=== PATIENT | male | born 1960 | race Caucasian/White ===

== ENCOUNTER 2017-04-17 07:09 | Day surgery (SDC) | payer BC, OTHER ==
[~2017-04-17] VITALS: Ht 185.4 cm; Wt 99.3 kg
[~2017-04-17 07:09] MED LIST: CURC500C PO; DOXY100C37; FLEXERIL OR; FLUO20CA19; LEXAPRO OR; MSM/CAP PO; MULTIVIT OR; SAW80CAP PO; SM I100T OR; TRAM50TA2 OR; VIT D 2000 OR; VITAMIN E OR; [UNRECOGNIZED DRUG - CODE] PO; [UNRECOGNIZED DRUG - OTHER] PB
[2017-04-17] MEDS ORDERED: NS 1,000 ML IV ONE (07:30)
[2017-04-17] MEDS ORDERED: LIDOCAINE 2% INJ 100 MG/5 ML SDV (FOR ANES.) As Ordered ONE (07:37)
[2017-04-17] MEDS ORDERED: PROPOFOL 500 MG/50 ML VIAL As Ordered ONE (07:37)
--- NOTE | 2017-04-17 07:51 | ROOR ---
Patient Name: José Medellin Procedure Date: 04/17/2017 7:34 AM Date of : 1960 Age: 56 Room: [facility] Gender: Male Note Status: Finalized Procedure: Total Colonoscopy to Cecum Indications: High risk colon cancer surveillance: Personal history of colonic polyps, Last colonoscopy: 2013 Providers: Bal Arredondo MD Referring MD: ROB ROSADO JR, MD Requesting Provider: Medicines: Monitored Anesthesia Care Complications: No immediate complications. Procedure: Pre-Anesthesia Assessment: - The heart rate, respiratory rate, oxygen saturations, blood pressure, adequacy of pulmonary ventilation, and response to care were monitored throughout the procedure. The Colonoscope was introduced through the anus and advanced to the cecum, identified by appendiceal orifice and ileocecal valve. The colonoscopy was performed without difficulty. The patient tolerated the procedure well. The quality of the bowel preparation was excellent. Findings: The perianal and digital rectal examinations were normal. Non-bleeding internal hemorrhoids were found during retroflexion. The hemorrhoids were small and Grade I (internal hemorrhoids that do not prolapse). No other significant abnormalities were identified in a careful examination of the remainder of the colon. The exam was otherwise without abnormality on direct and retroflexion views. Impression: - Non-bleeding internal hemorrhoids. - The examination was otherwise normal on direct and retroflexion views. - No specimens collected. - The exam was otherwise normal to the cecum. Recommendation: - Patient has a contact number available for emergencies. The signs and symptoms of potential delayed complications were discussed with the patient. Return to normal activities tomorrow. Written discharge instructions were provided to the patient. - High fiber diet. - Discharge patient to home. - Continue present medications. - Repeat colonoscopy in 5 years for surveillance. - Return to referring physician. - The findings and recommendations were discussed with the patient's family. Bal Arredondo MD Bal Arredondo MD 04/17/2017 7:51:36 AM This report has been signed electronically. Number of Addenda: 0 Note Initiated On: 04/17/2017 7:34 AM Estimated Blood Loss: Estimated blood loss: none.
[2017-04-17 08:15] VITALS: BP 115/65
== END 2017-04-17 08:17 | disposition home or self-care (01) ==
LOC: M OPP 07:09
PROVIDERS: ATTEND Internal Medicine Gastroenterology
DX: Z12.11 Encounter for screening for malignant neoplasm of colon (principal); Z86.010 Personal history of colon polyps; K64.0 First degree hemorrhoids; E11.9 Type 2 diabetes mellitus without complications; R12 Heartburn; K21.9 Gastro-esophageal reflux disease without esophagitis; M19.90 Unspecified osteoarthritis, unspecified site; M54.5 Low back pain; F41.9 Anxiety disorder, unspecified; N40.1 Benign prostatic hyperplasia with lower urinary tract symptoms; Z98.1 Arthrodesis status; Z91.040 Latex allergy status; Z79.899 Other long term (current) drug therapy; Z87.891 Personal history of nicotine dependence

== ENCOUNTER → 2018-01-22 | Outpatient (CLI) | payer BC, OTHER | LOC: M RAD 07:40 | DX: S92.302A Fracture of unspecified metatarsal bone(s), left foot, initial encounter for closed fracture (principal); Y92.89 Other specified places as the place of occurrence of the external cause; Y93.89 Activity, other specified; X58.XXXA Exposure to other specified factors, initial encounter; Y99.8 Other external cause status | CPT/HCPCS: 78315 ==

== ENCOUNTER → 2018-01-30 | Outpatient (REF) | payer OTHER ==
[2018-01-30 14:20] LABS: TESTOSTERONE 479 NG/DL (241-827)
== END ==
LOC: M LAB REF 13:52
DX: R53.83 Other fatigue (principal)

== ENCOUNTER → 2018-03-12 | Outpatient (REF) | payer OTHER ==
[2018-03-12 13:53] LABS: HEMOGLOBIN 16.2 g/dl (13.5-17.5); MEAN CORPUSCULAR HEMOGLOBIN 32.5 pg (27.0-33.0); MEAN CORPUSCULAR HGB CONC 33.8 g/dl (32.0-36.5); MEAN CORPUSCULAR VOLUME 96.2 fl (80.0-96.0); PLATELET COUNT, AUTOMATED 228 10^3/uL (150-450); RED BLOOD COUNT 4.99 10^6/uL (4.30-6.10); RED CELL DISTRIBUTION WIDTH 11.9 % (11.5-14.5); WHITE BLOOD COUNT 5.5 10^3/uL (4.0-10.0)
[2018-03-12 13:55] LABS: C REACTIVE PROTEIN QUANTITATIV < 0.30 MG/DL (0.00-0.30)
[2018-03-12 14:32] LABS: ERYTHROCYTE SEDIMENTATION RATE 3 mm/hr (0-20)
== END ==
LOC: M LAB REF 12:44
DX: S93.402A Sprain of unspecified ligament of left ankle, initial encounter (principal); X58.XXXA Exposure to other specified factors, initial encounter; Y92.9 Unspecified place or not applicable; Y93.9 Activity, unspecified

== ENCOUNTER 2022-11-28 07:50 | Day surgery (SDC) | payer BC, OTHER ==
[~2022-11-28] VITALS: Ht 185.4 cm; Wt 95.0 kg
[~2022-11-28 07:50] MED LIST changes: +ATOR1TAB21 PO; +DOXY-443; -DOXY100C37; -FLUO20CA19; +FLUO20CA22; +FLUO20CA22 PO; +LEXA1TAB OR; -LEXAPRO OR; +NS 1,000 ML IV ONE; +TURM500T PO; +VITA100093 PO; +VITMTA PO; +curcumin PO; +moringa PO
[2022-11-28] MEDS ORDERED: propofoL 200 MG/20 ML VIAL As Ordered ONE ×2 (09:28→09:29)
[2022-11-28] MEDS ORDERED: LIDOCAINE 2% 100MG/5ML SDV (FOR ANES.) As Ordered ONE (09:40)
[2022-11-28 09:50] VITALS: TEMP 96.6
[2022-11-28 10:10] VITALS: BP 136/69; O2SAT 98
== END 2022-11-28 10:26 | disposition home or self-care (01) ==
LOC: M OPP 07:50
PROVIDERS: ATTEND Internal Medicine Gastroenterology
DX: Z12.11 Encounter for screening for malignant neoplasm of colon (principal); Z86.010 Personal history of colon polyps; Z79.1 Long term (current) use of non-steroidal anti-inflammatories (NSAID); Z79.52 Long term (current) use of systemic steroids; Z91.030 Bee allergy status; Z91.040 Latex allergy status

== ENCOUNTER → 2024-01-01 | Outpatient (CLI) | payer MEDICARE, BC ==
[~2024-01-01] MED LIST changes: +DOXY-323; -DOXY-443; +FLUO-365; +FLUO-365 PO; -FLUO20CA22; -FLUO20CA22 PO; -NS 1,000 ML IV ONE
== END ==
LOC: M PLAIMG 10:00
PROVIDERS: ATTEND Physician Assistant
DX: J32.8 Other chronic sinusitis (principal)

== ENCOUNTER → 2024-05-21 | Outpatient (REF) | payer MEDICARE, BC, OTHER ==
[~2024-05-21] MED LIST changes: -DOXY-323; +DOXY-441
== END ==
LOC: M LAB REF 11:42
PROVIDERS: ATTEND Nurse Practitioner Family
DX: R19.7 Diarrhea, unspecified (principal)

== ENCOUNTER → 2024-12-03 | Outpatient (CLI) | payer MEDICARE, BC | LOC: M PLAIMG 06:36 | PROVIDERS: ATTEND Internal Medicine | DX: M51.26 Other intervertebral disc displacement, lumbar region (principal); M47.816 Spondylosis without myelopathy or radiculopathy, lumbar region ==

== ENCOUNTER → 2025-05-05 | Outpatient (CLI) | payer MEDICARE, BC | LOC: M WUC 11:21 | PROVIDERS: ATTEND Nurse Practitioner Family | DX: R06.02 Shortness of breath (principal); R05.9 Cough, unspecified ==